=== PATIENT | female | born 1990 | race Hispanic/Latino ===

== ENCOUNTER 2019-06-16 18:30 | Emergency (ER) | payer SELFPAY ==
--- NOTE | 2019-06-16 18:45 | Event Note ---
ED Screening Note Date of service: 06/16/19 Time: 18:41 ED Screening Note: This is a 28 y.o. F. that presents to the ER with SOB and dizziness since last night. PMH depression, anxiety, fisher's esophagus LMP 05/27/2019 0 This initial assessment/diagnostic orders/clinical plan/treatment(s) is/are subject to change based on patients health status, clinical progression and re- assessment by fellow clinical providers in the ED. Further treatment and workup at subsequent clinical providers discretion. Patient/guardian urged not to elope from the ED as their condition may be serious if not clinically assessed and managed. Initial orders include: Labs and CXR
[2019-06-16 19:07] LABS: Basophils % (Auto) 0.5 % (0.0-1.8); Eosinophils # (Auto) 0.1 K/mm3 (0.0-0.4); Eosinophils % (Auto) 0.7 % (0.0-4.3); Hematocrit 40.1 % (30.3-42.9); Hemoglobin 13.4 gm/dl (10.1-14.3); Lymphocytes # (Auto) 2.8 K/mm3 (1.2-5.4); Lymphocytes % (Auto) 36.3 % (13.4-35.0); Mean Corpuscular HGB Conc 33 % (30-34); Mean Corpuscular Volume 74 fl (79-97); Monocytes # (Auto) 0.5 K/mm3 (0.0-0.8); Monocytes % (Auto) 6.4 % (0.0-7.3); Platelet Count 320 K/mm3 (140-440); Red Blood Count 5.43 M/mm3 (3.65-5.03); Red Cell Distribution Width 16.2 % (13.2-15.2)
[2019-06-16 19:36] LABS: BUN/Creatinine Ratio 12; Blood Urea Nitrogen 6 mg/dL (7-17); Calcium 10.1 mg/dL (8.4-10.2); Hemolysis Index 10
[2019-06-16] MEDS ORDERED: NACL 0.9% 1000 ML 1,000 ML IV ONE (20:02)
[2019-06-16] MEDS ORDERED: PROTONIX IV ONE (20:02)
--- NOTE | 2019-06-16 20:02 | Emergency Department Report ---
ED Shortness of Breath HPI - General Chief Complaint: Dyspnea/Respdistress Stated Complaint: SOB/DIZZY Time Seen by Provider: 06/16/19 18:41 Source: patient Mode of arrival: Ambulatory Limitations: No Limitations - History of Present Illness Initial Comments: Patient is a 28-year-old female presents the emergency room with complaints of shortness of breath that began a few days ago. pt has associated lightheadedness and chest tightness with breathing. States she also has nausea and vomiting for several months intermittently. She denies any cough, diarrhea, fever. Patient states she has had these symptoms before and "just needed fluids." Denies any recent long car or plane ride, recent surgery, recent immobilization, hormone use, or lower extremity edema. Denies any family cardiac history. She believes that there may be a history of DVT or PE in her family but she is not sure because she is adopted. She has a past medical history of depression and seizures. States she also has a history of Loaiza's esophagus and is not taking an acid dredge master and believes this is the cause of her intermittent nausea and vomiting. - Related Data Previous Rx's Medication Instructions Recorded Last Taken Type Omeprazole 20 mg PO DAILY #30 tablet. 06/16/19 Unknown Rx Ondansetron [Zofran Odt] 4 mg PO Q8HR PRN #14 tab.reno 06/16/19 Unknown Rx cephALEXin [Keflex] 500 mg PO BID 7 Days #14 cap 06/16/19 Unknown Rx Allergies Allergy/AdvReac Type Severity Reaction Status Date / Time No Known Allergies Allergy Unverified 06/16/19 18:31 ED Review of Systems ROS: Stated complaint: SOB/DIZZY Other details as noted in HPI Comment: All other systems reviewed and negative ED Past Medical Hx - Past Medical History Hx Psychiatric Treatment: Yes (depression,anxiety) Additional medical history: Barretts - Surgical History Hx Cholecystectomy: Yes - Social History Smoking Status: Never Smoker Substance Use Type: None - Medications Home Medications: Home Medications Medication Instructions Recorded Confirmed Last Taken Type Omeprazole 20 mg PO DAILY #30 tablet. 06/16/19 Unknown Rx Ondansetron [Zofran Odt] 4 mg PO Q8HR PRN #14 tab.reno 06/16/19 Unknown Rx cephALEXin [Keflex] 500 mg PO BID 7 Days #14 cap 06/16/19 Unknown Rx ED Physical Exam - General Limitations: No Limitations General appearance: alert, in no apparent distress - Head Head exam: Present: atraumatic, normocephalic - Eye Eye exam: Present: normal appearance, PERRL, EOMI. Absent: nystagmus - ENT ENT exam: Present: mucous membranes moist - Respiratory Respiratory exam: Present: normal lung sounds bilaterally. Absent: respiratory distress, wheezes, rales, rhonchi, stridor, chest wall tenderness, accessory muscle use, decreased breath sounds, prolonged expiratory - Cardiovascular Cardiovascular Exam: Present: regular rate, normal rhythm, normal heart sounds. Absent: systolic murmur, diastolic murmur, rubs, gallop - GI/Abdominal GI/Abdominal exam: Present: soft, normal bowel sounds. Absent: distended, tenderness, guarding, rebound, rigid - Neurological Exam Neurological exam: Present: alert, oriented X3, CN II-XII intact, normal gait. Absent: motor sensory deficit - Psychiatric Psychiatric exam: Present: normal affect, normal mood - Skin Skin exam: Present: warm, dry, intact ED Course Vital Signs 06/16/19 06/17/19 18:40 00:30 Temperature 97.9 F 98.6 F Pulse Rate 96 H 86 Respiratory 18 20 Rate Blood Pressure 162/94 Blood Pressure 138/68 [Left] O2 Sat by Pulse 99 100 Oximetry ED Medical Decision Making - Lab Data Result diagrams: 06/16/19 18:46 06/16/19 18:46 Lab Results 06/16/19 06/16/19 06/16/19 Range/Units 18:46 18:46 18:46 WBC 7.6 (4.5-11.0) K/mm3 RBC 5.43 H (3.65-5.03) M/mm3 Hgb 13.4 (10.1-14.3) gm/dl Hct 40.1 (30.3-42.9) % MCV 74 L (79-97) fl MCH 25 L (28-32) pg MCHC 33 (30-34) % RDW 16.2 H (13.2-15.2) % Plt Count 320 (140-440) K/mm3 Lymph % (Auto) 36.3 H (13.4-35.0) % Crosby % (Auto) 6.4 (0.0-7.3) % Eos % (Auto) 0.7 (0.0-4.3) % Baso % (Auto) 0.5 (0.0-1.8) % Lymph # 2.8 (1.2-5.4) K/mm3 Crosby # 0.5 (0.0-0.8) K/mm3 Eos # 0.1 (0.0-0.4) K/mm3 Baso # 0.0 (0.0-0.1) K/mm3 Seg Neutrophils % 56.1 (40.0-70.0) % Seg Neutrophils # 4.3 (1.8-7.7) K/mm3 D-Dimer (0-234) ng/mlDDU Sodium 139 (137-145) mmol/L Potassium 4.0 (3.6-5.0) mmol/L Chloride 105.2 (98-107) mmol/L Carbon Dioxide 22 (22-30) mmol/L Anion Gap 16 mmol/L BUN 6 L (7-17) mg/dL Creatinine 0.5 L (0.7-1.2) mg/dL Estimated GFR > 60 ml/min BUN/Creatinine Ratio 12 % Glucose 99 (65-100) mg/dL Calcium 10.1 (8.4-10.2) mg/dL Troponin T (0.00-0.029) ng/mL NT-Pro-B Natriuret Pep (0-450) pg/mL HCG, Qual Negative (Negative) Urine Color (Yellow) Urine Turbidity (Clear) Urine pH (5.0-7.0) Ur Specific Watson (1.003-1.030) Urine Protein (Negative) mg/dL Urine Glucose (UA) (Negative) mg/dL Urine Ketones (Negative) mg/dL Urine Blood (Negative) Urine Nitrite (Negative) Urine Bilirubin (Negative) Urine Urobilinogen (<2.0) mg/dL Ur Leukocyte Esterase (Negative) Urine WBC (Auto) (0.0-6.0) /HPF Urine RBC (Auto) (0.0-6.0) /HPF U Epithel Cells (Auto) (0-13.0) /HPF Urine Bacteria (Auto) (Negative) /HPF Urine Mucus /HPF Urine Yeast (Budding) /HPF Urine Opiates Screen Urine Methadone Screen Ur Barbiturates Screen Ur Phencyclidine Scrn Ur Amphetamines Screen U Benzodiazepines Scrn Urine Cocaine Screen U Marijuana (THC) Screen Drugs of Abuse Note 06/16/19 06/16/19 06/16/19 Range/Units 19:51 19:51 19:58 WBC (4.5-11.0) K/mm3 RBC (3.65-5.03) M/mm3 Hgb (10.1-14.3) gm/dl Hct (30.3-42.9) % MCV (79-97) fl MCH (28-32) pg MCHC (30-34) % RDW (13.2-15.2) % Plt Count (140-440) K/mm3 Lymph % (Auto) (13.4-35.0) % Crosby % (Auto) (0.0-7.3) % Eos % (Auto) (0.0-4.3) % Baso % (Auto) (0.0-1.8) % Lymph # (1.2-5.4) K/mm3 Crosby # (0.0-0.8) K/mm3 Eos # (0.0-0.4) K/mm3 Baso # (0.0-0.1) K/mm3 Seg Neutrophils % (40.0-70.0) % Seg Neutrophils # (1.8-7.7) K/mm3 D-Dimer 206.37 (0-234) ng/mlDDU Sodium (137-145) mmol/L Potassium (3.6-5.0) mmol/L Chloride (98-107) mmol/L Carbon Dioxide (22-30) mmol/L Anion Gap mmol/L BUN (7-17) mg/dL Creatinine (0.7-1.2) mg/dL Estimated GFR ml/min BUN/Creatinine Ratio % Glucose (65-100) mg/dL Calcium (8.4-10.2) mg/dL Troponin T (0.00-0.029) ng/mL NT-Pro-B Natriuret Pep (0-450) pg/mL HCG, Qual (Negative) Urine Color Nubia (Yellow) Urine Turbidity Cloudy (Clear) Urine pH 5.0 (5.0-7.0) Ur Specific Watson 1.026 (1.003-1.030) Urine Protein <15 mg/dl (Negative) mg/dL Urine Glucose (UA) Neg (Negative) mg/dL Urine Ketones Neg (Negative) mg/dL Urine Blood Neg (Negative) Urine Nitrite Neg (Negative) Urine Bilirubin Neg (Negative) Urine Urobilinogen < 2.0 (<2.0) mg/dL Ur Leukocyte Esterase Lg (Negative) Urine WBC (Auto) > 182.0 H (0.0-6.0) /HPF Urine RBC (Auto) 13.0 (0.0-6.0) /HPF U Epithel Cells (Auto) 24.0 H (0-13.0) /HPF Urine Bacteria (Auto) 1+ (Negative) /HPF Urine Mucus 2+ /HPF Urine Yeast (Budding) 2+ /HPF Urine Opiates Screen Presumptive negative Urine Methadone Screen Presumptive negative Ur Barbiturates Screen Presumptive negative Ur Phencyclidine Scrn Presumptive negative Ur Amphetamines Screen Presumptive negative U Benzodiazepines Scrn Presumptive negative Urine Cocaine Screen Presumptive negative U Marijuana (THC) Screen Presumptive negative Drugs of Abuse Note Disclamer 06/16/19 Range/Units 19:58 WBC (4.5-11.0) K/mm3 RBC (3.65-5.03) M/mm3 Hgb (10.1-14.3) gm/dl Hct (30.3-42.9) % MCV (79-97) fl MCH (28-32) pg MCHC (30-34) % RDW (13.2-15.2) % Plt Count (140-440) K/mm3 Lymph % (Auto) (13.4-35.0) % Crosby % (Auto) (0.0-7.3) % Eos % (Auto) (0.0-4.3) % Baso % (Auto) (0.0-1.8) % Lymph # (1.2-5.4) K/mm3 Crosby # (0.0-0.8) K/mm3 Eos # (0.0-0.4) K/mm3 Baso # (0.0-0.1) K/mm3 Seg Neutrophils % (40.0-70.0) % Seg Neutrophils # (1.8-7.7) K/mm3 D-Dimer (0-234) ng/mlDDU Sodium (137-145) mmol/L Potassium (3.6-5.0) mmol/L Chloride (98-107) mmol/L Carbon Dioxide (22-30) mmol/L Anion Gap mmol/L BUN (7-17) mg/dL Creatinine (0.7-1.2) mg/dL Estimated GFR ml/min BUN/Creatinine Ratio % Glucose (65-100) mg/dL Calcium (8.4-10.2) mg/dL Troponin T < 0.010 (0.00-0.029) ng/mL NT-Pro-B Natriuret Pep 47.70 (0-450) pg/mL HCG, Qual (Negative) Urine Color (Yellow) Urine Turbidity (Clear) Urine pH (5.0-7.0) Ur Specific Watson (1.003-1.030) Urine Protein (Negative) mg/dL Urine Glucose (UA) (Negative) mg/dL Urine Ketones (Negative) mg/dL Urine Blood (Negative) Urine Nitrite (Negative) Urine Bilirubin (Negative) Urine Urobilinogen (<2.0) mg/dL Ur Leukocyte Esterase (Negative) Urine WBC (Auto) (0.0-6.0) /HPF Urine RBC (Auto) (0.0-6.0) /HPF U Epithel Cells (Auto) (0-13.0) /HPF Urine Bacteria (Auto) (Negative) /HPF Urine Mucus /HPF Urine Yeast (Budding) /HPF Urine Opiates Screen Urine Methadone Screen Ur Barbiturates Screen Ur Phencyclidine Scrn Ur Amphetamines Screen U Benzodiazepines Scrn Urine Cocaine Screen U Marijuana (THC) Screen Drugs of Abuse Note - EKG Data EKG shows normal: sinus rhythm, axis, intervals, QRS complexes, ST-T waves Rate: normal - Radiology Data Radiology results: report reviewed CHEST 2 VIEWS INDICATION / CLINICAL INFORMATION: MAIN: Shortness of breath, chest discomfort FOR 2 DAYS . COMPARISON: None available. FINDINGS: SUPPORT DEVICES: None. HEART / MEDIASTINUM: No significant abnormality. LUNGS / PLEURA: No significant pulmonary or pleural abnormality. No pneumothorax. ADDITIONAL FINDINGS: Dextroconvex scoliotic curvature of the lower thoracic and lumbar spine. IMPRESSION: 1. No acute findings. Signer Name: Danis Arteaga MD Signed: 06/16/2019 8:09 PM Workstation Name: [id number] Transcribed By: HARVEY Dictated By: Danis Arteaga MD Electronically Authenticated By: Danis Arteaga MD Signed Date/Time: 06/16/192008 - Medical Decision Making Patient is a 28-year-old female presents the emergency room with complaints of shortness of breath that began a few days ago. pt has associated lightheadedness and chest tightness with breathing. States she also has nausea and vomiting for several months intermittently. She denies any cough, diarrhea, fever. Patient states she has had these symptoms before and "just needed fluids." Denies any recent long car or plane ride, recent surgery, recent immobilization, hormone use, or lower extremity edema. Denies any family cardiac history. She believes that there may be a history of DVT or PE in her family but she is not sure because she is adopted. She has a past medical history of depression and seizures. States she also has a history of Loaiza's esophagus and is not taking an acid dredge master and believes this is the cause of her intermittent nausea and vomiting. VSS. labs WNL. UA with evidence of UTI. EKG WNL. CXR WNL. pt given 1L of fluids, ceftriaxone, and protonix. pt given prescription for zofran, omeprazole, and keflex. advised to please take medication as prescribed. drink plenty of water. Follow up with a primary care doctor and GI doctor in the next 2-3 days. Return to the emergency room for any new or worsening symptoms. - Differential Diagnosis asthma, URI, PE, ACS, arrhythmia, anemia Critical care attestation.: If time is entered above; I have spent that time in minutes in the direct care of this critically ill patient, excluding procedure time. ED Disposition Clinical Impression: SOB (shortness of breath), Chest tightness Nausea & vomiting Qualifiers: Vomiting type: unspecified Vomiting Intractability: non-intractable Qualified Code(s): R11.2 - Nausea with vomiting, unspecified UTI (urinary tract infection) Qualifiers: Urinary tract infection type: acute cystitis Hematuria presence: without hematuria Qualified Code(s): N30.00 - Acute cystitis without hematuria Disposition: - TO HOME OR SELFCARE Is pt being admited?: No Does the pt Need Aspirin: No Condition: Stable Instructions: Urinary Tract Infection in Women (ED), Dyspnea (ED) Additional Instructions: Please take medication as prescribed. drink plenty of water. Follow up with a primary care doctor and GI doctor in the next 2-3 days. Return to the emergency room for any new or worsening symptoms. Prescriptions: cephALEXin [Keflex] 500 mg PO BID 7 Days #14 cap Omeprazole 20 mg PO DAILY #30 tablet. Ondansetron [Zofran Odt] 4 mg PO Q8HR PRN #14 tab.rapdis PRN Reason: Nausea And Vomiting Referrals: PADMINI GRANT MD [Primary Care Provider] - 2-3 Days [facility] [Provider Group] - 2-3 Days Time of Disposition: 22:23 Print Language: DIVEHI
--- NOTE | 2019-06-16 20:13 | XRay Report ---
CHEST 2 VIEWS INDICATION / CLINICAL INFORMATION: MAIN: Shortness of breath, chest discomfort FOR 2 DAYS . COMPARISON: None available. FINDINGS: SUPPORT DEVICES: None. HEART / MEDIASTINUM: No significant abnormality. LUNGS / PLEURA: No significant pulmonary or pleural abnormality. No pneumothorax. ADDITIONAL FINDINGS: Dextroconvex scoliotic curvature of the lower thoracic and lumbar spine. IMPRESSION: 1. No acute findings. Signer Name: Danis Arteaga MD Signed: 06/16/2019 8:09 PM Workstation Name: [id number]
[2019-06-16 20:25] LABS: Color,Urine Amber (Yellow)
[2019-06-16 20:26] LABS: Bacteria,Urine 1+ /HPF (Negative); Bilirubin,Urine NEG (Negative); Blood,Urine NEG (Negative); Mucus,Urine 2+ /HPF; Protein,Urine <15 mg/dL mg/dL (Negative); Urobilinogen,Urine < 2.0 mg/dL (<2.0)
[2019-06-16 20:29] LABS: Amphetamine Screen,Urine PRESUMPTIVE NEGATIVE; Benzodiazepines Screen,Urine PRESUMPTIVE NEGATIVE; Cannabinoid Screen,Urine PRESUMPTIVE NEGATIVE; Cocaine Screen,Urine PRESUMPTIVE NEGATIVE; Methadone Screen,Urine PRESUMPTIVE NEGATIVE; Opiate Screen,Urine PRESUMPTIVE NEGATIVE
[2019-06-16 20:33] LABS: WBC,Urine > 182.0 /HPF (0.0-6.0)
[2019-06-16] MEDS ORDERED: XYLOCAINE 1% MPF 5 mL INFILTRATI ONE (22:27)
[2019-06-16] MEDS ORDERED: ROCEPHIN IM ONE (22:27)
[2019-06-17 00:31] VITALS: BP 138/68
== END 2019-06-17 00:32 | disposition home or self-care (01) ==
LOC: ED 18:30
DX: N39.0 Urinary tract infection, site not specified (principal); R06.02 Shortness of breath; R07.89 Other chest pain; R11.2 Nausea with vomiting, unspecified; F41.9 Anxiety disorder, unspecified; F32.9 Major depressive disorder, single episode, unspecified; K22.70 Barrett's esophagus without dysplasia; Z90.49 Acquired absence of other specified parts of digestive tract; Z79.899 Other long term (current) drug therapy
CPT/HCPCS: 36415; 71046; 80048; 80307; 81001; 83880; 84484; 84703; 85025; 85379; 93005; 93010; 96361; 96372; 96374; 99283; C9113; J0696; J7030

== ENCOUNTER 2021-02-03 15:43 | Emergency (ER) | payer BC ==
[2021-02-03 16:29] VITALS: BP 137/83
[2021-02-03 17:06] LABS: Basophils # (Auto) 0.1 K/mm3 (0.0-0.1); Basophils % (Auto) 0.6 % (0.0-1.8); Eosinophils # (Auto) 0.1 K/mm3 (0.0-0.4); Eosinophils % (Auto) 1.1 % (0.0-4.3); Hematocrit 36.6 % (30.3-42.9); Lymphocytes # (Auto) 2.3 K/mm3 (1.2-5.4); Lymphocytes % (Auto) 24.8 % (13.4-35.0); Mean Corpuscular HGB Conc 33 % (30-34); Mean Corpuscular Volume 77 fl (79-97); Monocytes # (Auto) 0.6 K/mm3 (0.0-0.8); Monocytes % (Auto) 5.9 % (0.0-7.3); Platelet Count 336 K/mm3 (140-440); Red Blood Count 4.73 M/mm3 (3.65-5.03); Red Cell Distribution Width 14.7 % (13.2-15.2)
[2021-02-03 17:28] LABS: Alanine Aminotransferase 47 units/L (7-56); Albumin 3.7 g/dL (3.9-5); Blood Urea Nitrogen 5 mg/dL (7-17); Hemolysis Index 5
[2021-02-03 17:34] LABS: BUN/Creatinine Ratio 10
[2021-02-03 17:56] LABS: INR 0.91 (0.87-1.13)
--- NOTE | 2021-02-03 17:56 | Ultrasound Report ---
ULTRASOUND OBSTETRIC INDICATION / CLINICAL INFORMATION: RLQ pain. TECHNIQUE: Transabdominal and Transvaginal. COMPARISON: None available. FINDINGS: GESTATIONAL SAC: Well-defined oval shape and intrauterine in location. YOLK SAC: No significant abnormality. EMBRYO/FETUS: No significant abnormality. - [place]-Rump Length = 0.59 cm = 6.3 weeks.days - Heart Rate, beats per minute (if present) = 117 ADNEXA: No significant abnormality. FREE FLUID: None. ADDITIONAL FINDINGS: Small 6 mm subchorionic hemorrhage IMPRESSION: 1. Single, living intrauterine with estimated sonographic age of 6.3 weeks.days. 2. Tiny 6 mm subchorionic hemorrhage. Signer Name: Simone Amador MD Signed: 02/03/2021 5:52 PM Workstation Name: [email or web address]
--- NOTE | 2021-02-03 17:56 | Ultrasound Report ---
ULTRASOUND OBSTETRIC INDICATION / CLINICAL INFORMATION: RLQ pain. TECHNIQUE: Transabdominal and Transvaginal. COMPARISON: None available. FINDINGS: GESTATIONAL SAC: Well-defined oval shape and intrauterine in location. YOLK SAC: No significant abnormality. EMBRYO/FETUS: No significant abnormality. - [place]-Rump Length = 0.59 cm = 6.3 weeks.days - Heart Rate, beats per minute (if present) = 117 ADNEXA: No significant abnormality. FREE FLUID: None. ADDITIONAL FINDINGS: Small 6 mm subchorionic hemorrhage IMPRESSION: 1. Single, living intrauterine with estimated sonographic age of 6.3 weeks.days. 2. Tiny 6 mm subchorionic hemorrhage. Signer Name: Simone Amador MD Signed: 02/03/2021 5:52 PM Workstation Name: [email or web address]
[2021-02-03 17:57] LABS: Partial Thromboplastin Time 25.7 Sec. (24.2-36.6)
[2021-02-03] MEDS ORDERED: diphenhydrAMINE 25 MG CAP PO ONE (19:49)
[2021-02-03] MEDS ORDERED: ACETAMINOPHEN 500 MG TAB PO ONE (19:49)
[2021-02-03] MEDS ORDERED: METOCLOPRAMIDE 10 MG TAB PO ONE (19:49)
--- NOTE | 2021-02-03 19:54 | Emergency Department Report ---
ED N/V/D HPI - General Chief complaint: Abdominal Pain Stated complaint: 6 WKS THROWING UP BLOOD Time Seen by Provider: 02/03/21 19:45 Source: patient Mode of arrival: Ambulatory Limitations: No Limitations - History of Present Illness Initial comments: Patient is a 30-year-old female who is G1, P0, A0. Patient was seen by BIOMATHEMATICIAN today. Diagnosis single IUP , 6 weeks 3 days heart rate 147, normal first visit today. Patient states nausea and vomiting x1 this afternoon after getting home from doctor's office. Pt denies abd pain, States she saw blood streaks x1. There are no fevers, chills, back pain, no vaginal bleeding, at this time. Patient does endorse associated headache 3/10 frontal consistent with previous headaches. Patient is tolerating p.o. intake at this time. MD complaint: nausea, vomiting - Related Data Previous Rx's Medication Instructions Recorded Last Taken Type Omeprazole 20 mg PO DAILY #30 tablet. 06/16/19 Unknown Rx Ondansetron [Zofran Odt] 4 mg PO Q8HR PRN #14 tab.rapdis 06/16/19 Unknown Rx cephALEXin [Keflex] 500 mg PO BID 7 Days #14 cap 06/16/19 Unknown Rx Acetaminophen [Mapap] 650 mg PO Q6H PRN #30 tablet 02/03/21 Unknown Rx Metoclopramide [Reglan] 10 mg PO Q6H #30 tablet 02/03/21 Unknown Rx diphenhydrAMINE [Benadryl CAP] 25 mg PO Q6HR PRN #30 capsule 02/03/21 Unknown Rx Allergies Allergy/AdvReac Type Severity Reaction Status Date / Time No Known Allergies Allergy Unverified 06/16/19 18:31 ED Review of Systems ROS: Stated complaint: 6 WKS THROWING UP BLOOD Other details as noted in HPI Constitutional: denies: chills, fever Eyes: denies: eye pain, eye discharge, vision change ENT: congestion (head). denies: throat pain, dental pain, epistaxis Respiratory: denies: cough, shortness of breath, wheezing Cardiovascular: denies: chest pain, palpitations Endocrine: no symptoms reported Gastrointestinal: as per HPI, nausea, vomiting. denies: abdominal pain Genitourinary: denies: urgency, dysuria, discharge Musculoskeletal: denies: back pain, joint swelling, arthralgia Skin: denies: rash, lesions Neurological: headache. denies: weakness, numbness, paresthesias, confusion, vertigo Psychiatric: denies: anxiety, depression Hematological/Lymphatic: denies: easy bleeding, easy bruising ED Past Medical Hx - Past Medical History Hx Psychiatric Treatment: Yes (depression,anxiety) Additional medical history: Barretts - Surgical History Hx Cholecystectomy: Yes - Social History Smoking Status: Never Smoker Substance Use Type: None - Medications Home Medications: Home Medications Medication Instructions Recorded Confirmed Last Taken Type Omeprazole 20 mg PO DAILY #30 tablet. 06/16/19 Unknown Rx Ondansetron [Zofran Odt] 4 mg PO Q8HR PRN #14 tab.rapdis 06/16/19 Unknown Rx cephALEXin [Keflex] 500 mg PO BID 7 Days #14 cap 06/16/19 Unknown Rx Acetaminophen [Mapap] 650 mg PO Q6H PRN #30 tablet 02/03/21 Unknown Rx Metoclopramide [Reglan] 10 mg PO Q6H #30 tablet 02/03/21 Unknown Rx diphenhydrAMINE [Benadryl CAP] 25 mg PO Q6HR PRN #30 capsule 02/03/21 Unknown Rx ED Physical Exam - General Limitations: No Limitations General appearance: alert, in no apparent distress - Head Head exam: Present: atraumatic, normocephalic - Eye Eye exam: Present: EOMI Pupils: Present: normal accommodation - ENT ENT exam: Present: normal orophraynx, mucous membranes moist, TM's normal bilate rally, normal external ear exam - Neck Neck exam: Present: normal inspection, full ROM. Absent: tenderness, meningismus, lymphadenopathy, thyromegaly - Respiratory Respiratory exam: Present: normal lung sounds bilaterally. Absent: respiratory distress, wheezes, stridor, chest wall tenderness - Cardiovascular Cardiovascular Exam: Present: regular rate, normal rhythm, normal heart sounds. Absent: systolic murmur, diastolic murmur, rubs, gallop - GI/Abdominal GI/Abdominal exam: Present: soft, normal bowel sounds. Absent: distended, tende rness, guarding, rebound, rigid, bruit, hernia - Rectal Rectal exam: Present: deferred - Extremities Exam Extremities exam: Present: normal inspection, full ROM. Absent: tenderness - Back Exam Back exam: Present: normal inspection, full ROM. Absent: tenderness, CVA tenderness (R), CVA tenderness (L) - Neurological Exam Neurological exam: Present: alert, oriented X3, CN II-XII intact, normal gait, reflexes normal. Absent: motor sensory deficit - Expanded Neurological Exam Expanded Patient oriented to: Present: person, place, time Speech: Present: fluid speech Motor strength exam: RUE: 5, LUE: 5, RLE: 5, LLE: 5 Best Eye Response (O[place]): (4) open spontaneously Best Motor Response ([place]): (6) obeys commands Best Verbal Response (Oren): (5) oriented Oren Total: 15 - Psychiatric Psychiatric exam: Present: normal affect, normal mood - Skin Skin exam: Present: warm, dry, intact, normal color. Absent: rash ED Course Vital Signs 02/03/21 16:28 Temperature 97.8 F Pulse Rate 101 H Respiratory 20 Rate Blood Pressure 137/83 [Left] O2 Sat by Pulse 97 Oximetry ED Medical Decision Making - Lab Data Result diagrams: 02/03/21 16:45 02/03/21 16:45 Labs 02/03/21 02/03/21 02/03/21 16:45 16:45 16:45 WBC 9.4 RBC 4.73 Hgb 12.0 Hct 36.6 MCV 77 L MCH 25 L MCHC 33 RDW 14.7 Plt Count 336 Lymph % (Auto) 24.8 Clinch % (Auto) 5.9 Eos % (Auto) 1.1 Baso % (Auto) 0.6 Lymph # (Auto) 2.3 Clinch # (Auto) 0.6 Eos # (Auto) 0.1 Baso # (Auto) 0.1 Seg Neutrophils % 67.6 Seg Neutrophils # 6.4 PT 12.1 L INR 0.91 APTT 25.7 Sodium 136 L Potassium 3.5 L Chloride 100.6 Carbon Dioxide 26 Anion Gap 13 BUN 5 L Creatinine 0.5 L Estimated GFR > 60 BUN/Creatinine Ratio 10 Glucose 98 Calcium 9.0 Total Bilirubin 0.20 AST 30 ALT 47 Alkaline Phosphatase 106 Total Protein 7.1 Albumin 3.7 L Albumin/Globulin Ratio 1.1 Lipase 24 HCG, Quant 02/03/21 16:45 WBC RBC Hgb Hct MCV MCH MCHC RDW Plt Count Lymph % (Auto) Clinch % (Auto) Eos % (Auto) Baso % (Auto) Lymph # (Auto) Clinch # (Auto) Eos # (Auto) Baso # (Auto) Seg Neutrophils % Seg Neutrophils # PT INR APTT Sodium Potassium Chloride Carbon Dioxide Anion Gap BUN Creatinine Estimated GFR BUN/Creatinine Ratio Glucose Calcium Total Bilirubin AST ALT Alkaline Phosphatase Total Protein Albumin Albumin/Globulin Ratio Lipase HCG, Quant 50870 H - Radiology Data Radiology results: report reviewed, image reviewed Ordering Physician: ALEE LOPEZ Date of Service: 02/03/21 Procedure(s): US OB transvaginal Accession Number(s): [id number] cc: ALEE LOPEZ ULTRASOUND OBSTETRIC INDICATION / CLINICAL INFORMATION: RLQ pain. TECHNIQUE: Transabdominal and Transvaginal. COMPARISON: None available. FINDINGS: GESTATIONAL SAC: Well-defined oval shape and intrauterine in location. YOLK SAC: No significant abnormality. EMBRYO/FETUS: No significant abnormality. - [place]-Rump Length = 0.59 cm = 6.3 weeks.days - Heart Rate, beats per minute (if present) = 117 ADNEXA: No significant abnormality. FREE FLUID: None. ADDITIONAL FINDINGS: Small 6 mm subchorionic hemorrhage IMPRESSION: 1. Single, living intrauterine with estimated sonographic age of 6.3 weeks.days. 2. Tiny 6 mm subchorionic hemorrhage. Signer Name: Simone Amador MD Signed: 02/03/2021 5:52 PM Workstation Name: [id number] Transcribed By: ZACKERY dictated By: Simone Amador MD Electronically Authenticated By: Simone Amador MD Signed Date/Time: 02/03/211751 DD/ 50 TD/TT: - Medical Decision Making Labs noted normal, ultrasound previously done today noted normal single IUP. Patient is tolerating p.o. intake. Patient treated for headache. Patient will be DC'd home with prescriptions for Tylenol Reglan Benadryl as needed will follow-up with BIOMATHEMATICIAN and GI as scheduled. Patient verbalizes agreement and understanding with discharge plan. Patient DC'd home in stable condition at this time. Critical care attestation.: If time is entered above; I have spent that time in minutes in the direct care of this critically ill patient, excluding procedure time. ED Disposition Clinical Impression: Nausea and vomiting during Disposition: DC-01 TO HOME OR SELFCARE Is pt being admited?: No Does the pt Need Aspirin: No Condition: Stable Instructions: Abdominal Pain (ED), Nausea and Vomiting, Adult, Care Prescriptions: diphenhydrAMINE [Benadryl CAP] 25 mg PO Q6HR PRN #30 capsule PRN Reason: Headache Acetaminophen [Mapap] 650 mg PO Q6H PRN #30 tablet PRN Reason: pain Metoclopramide [Reglan] 10 mg PO Q6H #30 tablet Referrals: [facility] [Provider Group] - 3-5 Days [facility] [Provider Group] - 3-5 Days Forms: Work/School Release Form(ED) Time of Disposition: 20:02
== END 2021-02-03 20:05 | disposition home or self-care (01) ==
LOC: ED 15:43
DX: O20.8 Other hemorrhage in early pregnancy (principal); F41.9 Anxiety disorder, unspecified; F32.9 Major depressive disorder, single episode, unspecified; Z90.49 Acquired absence of other specified parts of digestive tract; Z79.899 Other long term (current) drug therapy
CPT/HCPCS: 36415; 76801; 76817; 80053; 83690; 84702; 85025; 85610; 85730